=== PATIENT | male | born 1955 | race Caucasian/White ===

== ENCOUNTER 2025-03-31 08:53 | Emergency (ER) | payer MEDICARE, SELFPAY ==
--- NOTE | ~2025-03-31 | XR_ITS ---
Clinical history:Elbow pain. No known injury EXAM:X-ray of the left minimum 3 views TECHNIQUE:4 images of the left elbow were obtained. Comparisons:None available FINDINGS: [ No significant degenerative change.] [ No radiographic evidence for a dislocation.] There is a 4 x 2 mm radiopaque density about the olecranon. Differential includes avulsion fracture of indeterminate age, osteophyte or loose body. [ No sclerotic or destructive bone lesions.] IMPRESSION: 1. There is a 4 x 2 mm radiopaque density about the olecranon. Differential includes avulsion fracture of indeterminate age, osteophyte or loose body. If symptoms persist or worsen consider a short-term follow-up study or MRI imaging for further assessment. Reviewed, dictated and finalized at location Q. IMPRESSION: 1. There is a 4 x 2 mm radiopaque density about the olecranon. Differential inc ludes avulsion fracture of indeterminate age, osteophyte or loose body. If symptoms persist or worsen consider a short-term follow-up study or MRI imag ing for further assessment.
[2025-03-31 09:00] VITALS: BP 139/79; PULSE 70; RESP 16; TEMP 37.2; O2SAT 97
--- NOTE | 2025-03-31 09:10 | ED_ITS ---
HPI - Extremity Problem General Chief complaint: Extremity Problem,Nontraumatic Stated complaint: L elbow pain and swelling Time Seen by Provider: 03/31/25 08:56 History of Present Illness HPI Narrative: 70-year-old male presents ER complaining of atraumatic left elbow pain that began last night. States the pain is worse with movement. Denies fevers. States pain radiates into his wrist Related Data Allergies Allergy/AdvReac Type Severity Reaction Status Date / Time No Known Allergies Allergy Verified 03/31/25 09:43 Review of Systems 2 Review of Systems: All systems reviewed & are unremarkable except as noted in HPI and below Exam 2 Const: General: healthy appearing, no acute distress and alert Nutritional Appearance: well nourished Orientation/consciousness: patient oriented x3 Limitations: no limitations HENMT: Head: normal to inspection Chest: Chest palpation & inspection: normal inspection of the chest Resp: Effort & Inspection: normal respiratory effort Auscultation: clear to auscultation bilaterally Cardio: Rate: regular rate Rhythm: regular rhythm Skin: General skin exam: normal color Neuro: General: patient oriented x3, moves all extremities and CN's II-XI intact bilaterally Speech: normal speech Gait exam (Neuro): Normal gait present Extrem: Other: Left elbow: Tenderness over the olecranon. No obvious bony abnormality or soft tissue swelling. No warmth to palpation. No swelling noted. Neurovascular is intact distally Course Vital Signs Vital signs: Vital Signs Temperature 37.2 C 03/31/25 09:00 Pulse Rate 70 03/31/25 09:00 Respiratory Rate 16 03/31/25 09:00 Blood Pressure 139/79 03/31/25 09:00 Pulse Oximetry 97 03/31/25 09:00 Oxygen Delivery Room Air 03/31/25 09:00 Temperature 37.2 C 03/31/25 09:00 Pulse Rate 70 03/31/25 09:00 Respiratory Rate 16 03/31/25 09:00 Blood Pressure 139/79 03/31/25 09:00 Pulse Oximetry 97 03/31/25 09:00 Oxygen Delivery Room Air 03/31/25 09:00 MDM - Extremity (Nontraumatic) MDM Narrative Medical decision making narrative: In summary: 7-year-old male presents to ER complaining of left elbow pain abruptly began this morning. Differential diagnosis includes cellulitis, gout, fracture, dislocation, tendinitis. To BC 13.0, uric acid 8.9. Imaging shows no acute fracture. Presentation is consistent with acute onset of gout. Plan to discharge patient home with prednisone and [place]. Referral to Orthopedics Lab Data 03/31/25 09:22 03/31/25 09:22 Labs: Lab Results 03/31/25 Range/Units 09:22 WBC 13.0 H (4.5-10.0) K/mm3 RBC 4.84 (4.6-6.20) M/mm3 Hgb 15.3 (14.0-18.0) g/dL Hct 44.5 (42.0-52.0) % MCV 91.9 (80-100) fl MCH 31.6 (26-34) pg MCHC 34.4 (32-36) g/dl RDW 12.3 (11.5-14.5) % Plt Count 217 (150-375) k/mm3 MPV 10.1 (7.4-10.4) fl Immature Gran % (Auto) 0.2 (0-0.5) % Neut % (Auto) 71.3 (45.5-73.1) % Lymph % (Auto) 17.8 L (18.3-44.2) % [place] % (Auto) 8.5 (2.6-8.5) % Eos % (Auto) 2.0 (0-4.4) % Baso % (Auto) 0.2 (0.2-1.2) % Lymph # (Auto) 2.31 (0.9-3.2) K/mm3 [place] # (Auto) 1.1 H (0.1-0.6) K/mm3 Eos # (Auto) 0.3 (0-0.3) K/mm3 Baso # (Auto) 0.0 (0.0-0.1) K/mm3 Abs Immat Gran (auto) 0.03 (0.00-0.031) K/mm3 Absolute Neuts (auto) 9.2 H (1.3-6.7) K/mm3 Absolute Nucleated RBC 0.000 (0.0-0.012) K/mm3 Nucleated RBC % 0.0 (0.0-0.2) % Sodium 134 L (137-145) mmol/L Potassium 4.4 (3.4-5.0) mmol/L Chloride 104 (98-107) mmol/L Carbon Dioxide 22 (22-30) mmol/L Anion Gap 8 (4-12) mmol/L BUN 17 (9-20) mg/dL Creatinine 0.98 (0.7-1.3) mg/dL Estim Creat Clear Calc 65 ml/min Estimated GFR > 60 (59 - ) Glucose 115 H (65-110) mg/dL Uric Acid 8.9 H (3.5-8.5) mg/dL Calcium 9.6 (8.4-10.2) mg/dL Total Bilirubin 1.5 H (0.2-1.3) mg/dL AST 30 (17-59) U/L ALT 34 (6-50) U/L Alkaline Phosphatase 64 (38-126) U/L Total Protein 7.6 (6.3-8.2) g/dL Albumin 4.5 (3.5-5.1) g/dL Discharge Plan Discharge Clinical Impression: Gout Patient Disposition: Home Condition: Stable Instructions: Antibiotic Form, Gout (ED) Patient Language: Cook Islander Prescriptions: New prednisone 50 mg tablet 50 mg PO DAILY Qty: 5 0RF Follow-up/Referrals: PHYSICIAN NOT ON STAFF,NONSTAFF [Non-Staff] Jose Francisco Chang MD [Physician, Orthopedics] Time of Disposition: 11:17
[2025-03-31 09:27] LABS: Hematocrit 44.5 % (42.0-52.0); Hemoglobin 15.3 g/dL (14.0-18.0); Immature Granulocyte Percent A 0.2 % (0-0.5); Lymphocytes Absolute Auto 2.31 K/mm3 (0.9-3.2); Mean Corpuscular HGB Conc 34.4 g/dl (32-36); Mean Corpuscular Hemoglobin 31.6 pg (26-34); Mean Corpuscular Volume 91.9 fl (80-100); Nucleated Red Blood Cells Absolute Auto 0.000 K/mm3 (0.0-0.012); Nucleated Red Blood Cells Perc 0.0 % (0.0-0.2); Platelet Count Result 217 k/mm3 (150-375); Red Blood Count 4.84 M/mm3 (4.6-6.20); White Blood Count 13.0 K/mm3 (4.5-10.0)
[2025-03-31 09:47] LABS: Alanine Aminotransferase 34 U/L (6-50); Albumin Level 4.5 g/dL (3.5-5.1); Alkaline Phosphatase 64 U/L (38-126); Anion Gap 8 mmol/L (4-12); Aspartate Amino Transferase 30 U/L (17-59); Bilirubin,Total 1.5 mg/dL (0.2-1.3); Blood Urea Nitrogen 17 mg/dL (9-20); Calcium 9.6 mg/dL (8.4-10.2); Carbon Dioxide 22 mmol/L (22-30); Chloride 104 mmol/L (98-107); Estimated CRCL calculation 65 ml/min; Estimated Glomerular Filt Rate > 60; Glucose 115 mg/dL (65-110); Potassium 4.4 mmol/L (3.4-5.0); Sodium 134 mmol/L (137-145); Total Protein 7.6 g/dL (6.3-8.2); Uric Acid 8.9 mg/dL (3.5-8.5)
[2025-03-31] MEDS: fentaNYL CITRATE INJ (*CRX) 100 MCG/2 ML VIAL 50 MCG IV PUSH (09:49)
[2025-03-31 11:20] VITALS: BP 134/70; PULSE 90; RESP 16; O2SAT 97
[2025-03-31] MEDS: fentaNYL CITRATE INJ (*CRX) 100 MCG/2 ML VIAL IV PUSH (11:23)
--- OUTSIDE RECORDS SUMMARY | 2025-03-31 11:36 | XMS_ITS | Clinical Summary ---
Author Organization [address] Address [address] [place] [address] Care Team Providers Care Blueprint Tracer Name Role Phone Shorty Shelley MD Unavailable RehanShorty castelan MD Primary Care Provider [phone] Allergies No known active allergies Medications lisinopriL (PRINIVIL,ZESTR IL) 40 mg tablet Take 1 tablet (40 mg total) by mouth daily 03/04/2019 Active multivitamin tablet Take 1 tablet by mouth daily 06/26/2007 Active omega-3 fatty acids-fish oil 340-1,000 mg capsule Take 1 capsule by mouth daily Active simvastatin (ZOCOR) 20 mg tablet Take 1 tablet (20 mg total) by mouth daily 03/04/2019 Active meloxicam (Mobic) 15 mg tablet Take 1 tablet (15 mg total) by mouth daily 30 tablet 04/19/2023 Active benzonatate (TESSALON) 100 mg capsuleIndicati ons:Cough Take 1 capsule (100 mg total) by mouth 3 (three) times a day as needed for cough 42 capsule 09/05/2023 Active Active Problems Problem Noted Date Diagnosed Date Essential hypertension 04/07/2020 Pure hypercholesterolemia 04/07/2020 History of repair of hip joint 12/16/2016 History of total hip arthroplasty 12/04/2014 Colon polyps 05/26/2011 Overview (04/07/2020): Seen in -2005 Surgical History Surgery Date Site/Laterality Comments TOTAL HIP ARTHROPLASTY Medical History Medical History Date Comments Hypertension Family History Medical History Relation Name Comments Cancer Father Relation Name Status Comments Father Social History Tobacco Use Types Packs/Day Years Used Date Smoking Tobacco: Never Smokeless Tobacco: Never Tobacco Cessation:Counseling Given: Not Answered Personal Safety Answer Date Recorded Getting School Help Needed Not on file 08/26 Sex and Gender Information Value Date Recorded Sex Assigned at Not on file Legal Sex Male 9:50 AM CDT Gender Identity Not on file Sexual Orientation Not on file Obstetrics History Last Filed Vital Signs Vital Sign Reading Time Taken Comments Blood Pressure 147/81 09/05/2023 12:21 PM CDT Pulse 71 09/05/2023 12:21 PM CDT Temperature 36.8 C (98.2 F) 09/05/2023 12:21 PM CDT Respiratory Rate 20 09/05/2023 12:21 PM CDT Oxygen Saturation 98% 09/05/2023 12:21 PM CDT Inhaled Oxygen Concentration - - Weight 90.7 kg (200 lb) 09/05/2023 12:21 PM CDT Height 170.2 cm (5' 7.01) 04/19/2023 9:56 AM CD T Body Mass Index 31.32 04/19/2023 9:56 AM CDT Plan of Treatment Health Maintenance Due Date Last Done Comments Colon Cancer Screening-Colonoscopy 1955 Depression Screening 1955 Fall Risk Assessment 1955 Hepatitis C Screening 1955 Hepatitis B Screening 1973 Abdominal Aortic Aneurysm (A AA) Screen 01/19/2020 Well Visit 65+ 01/19/2020 Pneumococcal vaccine 65+ (2 of 2 - PCV) 04/21/2021 04/21/2020 DTaP/Tdap/Td Vaccine (2 - Td or Tdap) 05/26/2021 05/26/2011, 06/26/2001 Covid-19 Vaccine (2024-2 6 season) 2025 04/23/2021, 10/12/2020, 09/11/2020, Additional history exists Influenza Vaccine (#1) 2025 04/08/2019, 2015 Zoster Vaccine Completed 01/26/2019, 09/29/2018 Insurance [facility]ICARE [facility] MEDICARE [facility] MEDICARE [facility] MEDICARE SUPPLEMENT Care Teams Blueprint Tracer Relationship Specialty Start Date End Date Shorty Van MD [address] [facility] [address] [place] [address] PCP - General Family Medicine 09/05/23 Shorty Shelley MD [address] [facility] [address] [place] [address] Surgeon Orthopedic Surgery 02/11/20
--- OUTSIDE RECORDS SUMMARY | 2025-03-31 11:36 | XMS_ITS | Encounter Summary ---
Author Organization [facility] Address [address] [place] [address] Care Team Providers Care Supervisor Soldering Name Role Phone Shorty Van MD Primary Care Provider Encounter Details Date Type Department Care Team (Late st Contact Info) Description 08/09/2007 Outpatient Historical [facility] Medicine - [facility] [address] [facility] [address] [place] [address] Shorty Van MD [address] [facility] [address] [place] [phone] Social History Tobacco Use Types Packs/Day Years Used Date Smoking Tobacco: Never Assessed Sex and Gender Information Value Date Recorded Sex Assigned at Not on file 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
--- OUTSIDE RECORDS SUMMARY | 2025-03-31 11:36 | XMS_ITS | Clinical Summary ---
Author Organization [email or web address] [facility] Address [address] [address] Care Team Providers Care Milled Rubber Tender Name Role Phone Rehan, Shorty Camacho MD Primary Care Provider Allergies No known active allergies Medications fish oil-omega-3 fatty acids 340-1,000 mg Oral Cap Take 1 Cap by mouth daily. Active multivitamin (DAILY-JANAE) Oral tablet Take 1 Tab by mouth daily. 008 Active sodium, potassium and magnesium sulfates (SUPREP) 17.5-3.13-1.6 gram Recon Soln Take as directed by physician 354 mL 2 4:44 PM CDT 022 Active Additional Information Patient not taking.Reported on 08/19/2024 amoxicillin (AMOXIL) 500 mg capsule Take 4 Capsules (2,000 mg) by mouth 1 hour prior to dental appointment 12 Capsule 1 5 9:39 AM FIXED INCOME TRADING VICE PRESIDENT 025 Active lisinopriL (PRINIVIL) 40 mg tabletIndications:Essen tial hypertension TAKE ONE TABLET BY MOUTH ONCE DAILY 100 Tablet 4 5 11:17 AM CDT 025 2025 Active simvastatin (ZOCOR) 20 mg tabletIndications:Pure hypercholesterolemia TAKE ONE TABLET BY MOUTH ONCE DAILY 100 Tablet 4 5 11:17 AM CDT 025 2025 Active amLODIPine (NORVASC) 5 mg tabletIndications:Ilia francois hypertension TAKE 1 TABLET BY MOUTH DAILY 90 Tablet 3 025 Active Active Problems Problem Noted Date Diagnosed Date Colon polyps 05/26/2011 Overview (05/26/2011): Seen in Essential hypertension Pure hypercholesterolemia Encounters Date Type Department Care Team Description 03/11/2025 External Device Data [facility] ABSTRACTION Provider, Abstract 03/04/2025 External Device Data [facility] Provider, Abstract 02/25/2025 External Device Data [facility] Provider, Abstract 02/04/2025 [facility] Care [address] [phone] Shorty Van MD Essential hypertension 01/09/2025 [facility] Care [address] [address] Shorty Van MD Essential hypertension 01/08/2025 External Device Data [facility] Provider, Abstract 01/08/2025 External Device Data [facility] Provider, Abstract 01/08/2025 External Device Data [facility] Provider, Abstract 01/08/2025 External Device Data [facility] Provider, Abstract 01/07/2025 External Device Data [facility]STRACTION Provider, Abstract from Last 3 Months Immunizations Immunization Administration Dates Next Due (ADACEL/BOOSTRIX)(10 YR UP) TDAP VACCINE, 0.5ML, IM 05/26/2011 (COMRINATY )(12YR UP) COVID-19 VACCINE, MRNA (PF)30 MCG/0.3 ML, IM SYRINGE 03/29/2024,04/21/2023 (PREVNAR 13)(6 WKS UP) PNEUM OCOCCAL CONJUGATE (PCV13) 0.5 ML, IM 04/22/2020 (PREVNAR 20)(6 WKS UP) PNEUM OCOCCAL CONJUGATE VACCINE 20-VALENT (PCV20), POLYSACCHARIDE [id number] CONJUGATE, ADJUVANT 0.5 ML (PF) IM 08/19/2024 (SHINGRIX)(50 YRS UP) ZOSTER VACCINE RECOMBINANT, 0.5 ML, IM 01/26/2019,09/29/2018 (SPIKEVAX) (12 YRS UP PRIMAR Y SERIES) COVID-19 VACCINE - MRNA-1273(PF) 100 MCG/0.5 ML IM SUSP 04/23/2021,10/12/2020,09/11/2020 (TDVAX)(7 YRS UP) TETANUS AN D DIPHTHERIA TOXOIDS, ADSORBED (2 LF OF TETANUS TOXOID AND 2 LF OF DIPHTHERIA TOXOID), 0.5ML (PF), IM 06/26/2001 INFLUENZA VACCINE HIGH DOSE QUADRIVALENT 65 YR UP PF IM 04/05/2023,03/21/2022,04/08/2021,03/21 INFLUENZA VACCINE HIGH DOSE TRIVALENT SPLIT VIRUS, (65 YR UP), 0.5ML (PF), IM 03/30/2025,03/29/2024 INFLUENZA VACCINE QUADRIVALE NT 3 YR UP PF IM 04/08/2019 Influenza Seasonal Unspecifi ed Formulation IM 04/12/2016 Pneumococcal Polysaccharide Vaccine 23-akin IM VFC 04/21/2020 Td(adult) Unspecified Formulation 06/08/2021 Zoster Vaccine Live SQ 09/29/2018 Family History Medical History Relation Name Comments Hypertension Brother 1 Hypertension Brother 2 Cancer Father renal cell Heart Disease Mother pneumonia Hypertension Mother Relation Name Status Comments Brother 1 Alive Brother 2 Alive Father Maternal Grandfather Maternal Grandmother Mother Paternal Grandfather Paternal Grandmother Social History Tobacco Use Types Packs/Day Years Used Date Smoking Tobacco: Never Smokeless Tobacco: Never Tobacco Cessation:Counseling Given: Yes Alcohol Use Standard Drinks/Week Comments Yes 5 (1 standard drink = 0.6 oz pur e alcohol) social Financial Resource Strain Answer Date R ecorded How hard is it for you to pa y for the very basics like food, housing, medical care, and heating? Not hard at all 08/15/2022 Food Insecurity Answer Date Recorded In the past 12 months, have you worried that your food would run out before you had money to buy more? Never true 08/15/2022 In the past 12 months, did y ou run out of food and didn't have money to buy more? Never true 08/15/2022 Transportation Needs Answer Date Record ed In the past 12 months, has l ack of transportation kept you from medical appointments or from getting medications? No 08/15/2022 Lack of Transportation (Non-Medical) Not on file 08/15/2022 Sex and Gender Information Value Date Recorded Sex Assigned at Not on file Legal Sex Male 5:27 AM FIXED INCOME TRADING VICE PRESIDENT Gender Identity Not on file Sexual Orientation Not on file Occupation Industry Job Start Date Job End Date Not on file Not on file Not on file Not on file Last Filed Vital Signs Vital Sign Reading Time Taken Comments Blood Pressure 162/92 08/19/2024 1:35 PM FIXED INCOME TRADING VICE PRESIDENT Pulse 79 08/19/2024 1:35 PM FIXED INCOME TRADING VICE PRESIDENT Temperature 36.3 C (97.4 F) 08/19/2024 1:16 PM FIXED INCOME TRADING VICE PRESIDENT Respiratory Rate 14 08/19/2024 1:16 PM FIXED INCOME TRADING VICE PRESIDENT Oxygen Saturation 97% 08/19/2024 1:16 PM FIXED INCOME TRADING VICE PRESIDENT Inhaled Oxygen Concentration - - Weight 93.2 kg (205 lb 8 oz) 08/19/2024 1:16 PM FIXED INCOME TRADING VICE PRESIDENT Height 170.2 cm (5' 7) 08/19/2024 1:16 PM FIXED INCOME TRADING VICE PRESIDENT Body Mass Index 32.19 08/19/2024 1:16 PM FIXED INCOME TRADING VICE PRESIDENT Plan of Treatment Health Maintenance Due Date Last Done Comments FIT-DNA Q 3 years 01/19/2000 FIT/FOBT Q 1 year 01/19/2000 Flex Sig/CT Colonography Q 5 years 01/19/2000 Pre-Diabetes and Diabetes Screening 07/04/2012 07/04/2009, 08/17/2008 COVID-19 Vaccine (2023-2 5 season) 2025 03/29/2024, 04/21/2023, 04/23/2021, Additional history exists Traditional Medicare (ACO) A nnual Wellness Visit 08/20/2025 08/19/2024, 08/18/2023, 08/15/2022, Additional history exists COLORECTAL SCREENING 03/10/2027 03/10/2022, 03/10/2022, 03/09/2022, Additional history exists Colorectal Cancer Screening 03/10/2027 RSV VACCINE (60+ or ) (1 - 1-dose 75+ series) 2030 DTAP/TDAP/TD VACCINES (3 - T d or Tdap) 06/08/2031 06/08/2021, 05/26/2011, 06/26/2001 ZOSTER VACCINE Completed 01/26/2019, 0411/2018, 09/29/2018 PNEUMOCOCCAL VACCINE 50+ YEARS Completed 0 08/19/2024, 04/22/2020, 04/21/2020 INFLUENZA VACCINE Completed 03/30/2025, , 04/05/2023, Additional history exists Goals Goal Patient Goal Type Associated Problems Recent Progress Patient-Stated? Author HYPERTENSIO N CARE PLAN GOAL Care Plan EFRAIN MYC HYPERTENSION CARE PLAN PROBLEM No RehanShorty MD Medical Devices Implanted Type Area Power Cleaner Operator Device Identifier Shelf Expiration Date Model / Serial / Lot Log [id number] - Biomet Hip Primary Acetabular Components - 1 - Shell Tri-Brett W/Astoria Hl 52mm [id number] Implanted:Qty: 1 on 07/15/2009 at [facility] Hip Right: Hip [employer] 01/24/2019 [id number] / [id number] / [id number] Log [id number] - Biomet Hip Primary Femoral Components - 1 - Stem Por X Series [id number] Implanted:Qty: 1 on 07/15/2009 at [facility] Hip Right: Hip [employer] 02/24/2019 [id number] / [id number] / [id number] Log [id number] - Biomet Hip Primary Acetabular Components - 1 - Head Fem Mod Cocr 32mm -3mm [id number] Implanted:Qty: 1 on 07/15/2009 at [facility] Hip Right: Hip [employer] 02/24/2018 [id number] / [id number] / [id number] Log [id number] - Biomet Hip Primary Acetabular Components - 1 - Shell Tri-Brett W/Astoria Hl 54mm [id number] Implanted:Qty: 1 on 12/02/2009 at [facility] Hip Left: Hip [employer] 07/27/2019 [id number] / / [id number] Log [id number] - Biomet Hip Primary Femoral Components - 1 - Stem Por X Series [id number] Implanted:Qty: 1 on 12/02/2009 at [facility] Hip Left: Hip [employer] 08/25/2019 [id number] / / [id number] Log [id number] - Biomet Hip Primary Acetabular Components - 1 - Head Magnum M2a 40mm -6mm [id number] Implanted:Qty: 1 on 12/02/2009 at [facility] Hip Left: Hip [employer] 08/25/2019 [id number] / / [id number] Implanted:Qty: 1 on 07/15/2009 at [facility] Right: Hip [employer] 05/26/2014 / [id number] / [id number] Description:liner E-Poly Liner Implanted:Qty: 1 on 12/02/2009 at [facility] Left: Hip [employer] 07/27/2012 [id number] / / [id number] Description:Epoly liner not part of total hip cap priciing,will be charged separately. Locking Ring Implanted:Qty: 1 on 12/02/2009 at [facility] Left: Hip [employer] 06/26/2019 [id number] / / [id number] Description:Locking ring not part of total hip cap pricing will be charged separately. Procedures Procedure Name Priority Date/Time Associated Diagnosis Comments COLONOSCOPY REPORT Routine 03/10/2022 HEMOGLOBIN A1C Routine 07/04/2009 2:00 AM FIXED INCOME TRADING VICE PRESIDENT Impaired Fasting Glucose from Last 3 Months or Most Recently Relevant to Health Maintenance Results * COLONOSCOPY REPORT (03/10/2022) us Abstract Provider GI PROCEDURE ORDERABLES Edited Result - Final Performing Organization Address City/[facility] Co de Phone Number [facility] CLIA# [id number] [address] [place] [address], [facility] [address] [address] * HEMOGLOBIN A1C (07/04/2009 2:00 AM FIXED INCOME TRADING VICE PRESIDENT) HEMOGLOBIN A1C 5.6 % of total Hgb [facility] Comment: NON-DIABETIC: <6.0% Test Performed at: [facility] [address] [place] [address] WILBERT PARKER DO,MPH Blood specimen (specimen) us Shorty Van MD CHEMISTRY ORDERABLES Final R esult INTERFACE SYSTEM Refer to clinic/hospital department [facility] [address] [place] [address] from Last 3 Months or Most Recently Relevant to Health Maintenance Additional Health Concerns Active Problems Noted Date Diagnosed Date EFRAIN MYC HYPERTENSION CARE PLAN PROBLEM Insurance MEDICARE PART A AND B BCBS SUPP RX ALLWIN DATA Medicare Part B RX [employer] Medicare Part D RX PER[employer] PLANS (INTERNAL) [facility] Plans Advance Directives For more information, please contact: [phone] * Full Code (Latest Code Status on File) Date Activated Date Inactivated Comments 12/02/2009 10:07 AM 12/05/2009 5:46 PM * Full Code Date Activated Date Inactivated Comments 12/02/2009 8:13 AM 12/02/2009 10:07 AM * Full Code Date Activated Date Inactivated Comments 12/02/2009 5:45 AM 12/02/2009 8:13 AM * Full Code Date Activated Date Inactivated Comments 07/15/2009 1:01 PM 07/18/2009 2:11 PM * Full Code Date Activated Date Inactivated Comments 07/15/2009 7:50 AM 07/15/2009 1:01 PM Care Teams Milled Rubber Tender Relationship Specialty Start Date End Date Shorty Van MD [address] [facility] [address] [place] [address] PCP - General 01/18/08
--- OUTSIDE RECORDS SUMMARY | 2025-03-31 11:36 | XMS_ITS | Encounter Summary ---
Author Organization [facility] Address [address] [place] [address] Care Team Providers Care Cnc Programmer Name Role Phone Shorty Van MD Primary Care Provider Encounter Details Date Type Department Care Team (Late st Contact Info) Description 03/06/2007 Outpatient Historical [facility] Medicine - [facility] [address] [facility] [address] [place] [address] Shorty Van MD [address] [facility] [address] [place] [address] Social History Tobacco Use Types Packs/Day Years Used Date Smoking Tobacco: Never Assessed Sex and Gender Information Value Date Recorded Sex Assigned at Not on file Legal Sex Male 5:27 AM GENERAL LITHOGRAPHIC WORKER Gender Identity Not on file Sexual Orientation Not on file documented as of this encounter Plan of Treatment Not on file documented as of this encounter Visit Diagnoses Not on filedocumented in this encounter Care Teams Cnc Programmer Relationship Specialty Start Date End Date Shorty Van MD [address] [facility] [address] [place] [address] PCP - General 01/18/08 documented as of this encounter
--- OUTSIDE RECORDS SUMMARY | 2025-03-31 11:36 | XMS_ITS | Encounter Summary ---
Author Organization [facility] Address [address] [place] [address] Care Team Providers Care Buckle Stapler Name Role Phone Shorty Van MD Primary Care Provider Encounter Details Date Type Department Care Team (Late st Contact Info) Description 08/09/2007 Outpatient Historical [facility] Medicine - [facility] [address] [facility] [address] [place] [address] Shorty Van MD [address] [facility] [address] [place] [address] Social History Tobacco Use Types Packs/Day Years Used Date Smoking Tobacco: Never Assessed Sex and Gender Information Value Date Recorded Sex Assigned at Not on file Legal Sex Male 5:27 AM MANAGER OF INTERNAL Gender Identity Not on file Sexual Orientation Not on file documented as of this encounter Plan of Treatment Not on file documented as of this encounter Visit Diagnoses Not on filedocumented in this encounter Care Teams Buckle Stapler Relationship Specialty Start Date End Date Shorty Van MD [address] [facility] [address] [place] [address] PCP - General 01/18/08 documented as of this encounter
== END 2025-03-31 11:46 | disposition home or self-care (01) ==
PROVIDERS: Emergency Provider Nurse Practitioner Family
DX: M10.9 Gout, unspecified (principal)
CPT/HCPCS: 36415; 73080; 80053; 84550; 85025; 85652; 96374; 96375; 96376; 99284; J2919; J3010